=== PATIENT | male | born 1990 | race Two or more races ===

== ENCOUNTER 2020-04-15 10:54 | Inpatient (IN) | payer MEDICAID, OTHER ==
[~2020-04-15] VITALS: Ht 175.3 cm; Wt 90.7 kg
[2020-04-15 12:17] LABS: Basophils # (auto) 0 10 ^3/uL (0-0.2); Basophils % (auto) 0.3 % (0.0-2.0); Eosinophils # (auto) 0 10 ^3/uL (0-0.8); Hematocrit 45.6 % (41.0-53.0); Hemoglobin 16.2 g/dL (13.5-17.5); Mean Corpuscular Hemoglobin 30.7 pg (28.0-32.0); Mean Corpuscular Hgb Conc. 35.5 g/dL (32.0-36.0); Mean Corpuscular Volume 86.6 fL (80.0-100.0); Monocytes # (auto) 0.2 10 ^3/uL (0-1.3); Monocytes % (auto) 6.2 % (0.0-12.0); Neutrophils # (auto) 2.4 10 ^3/uL (1.6-8.6); Neutrophils % (auto) 65.5 % (37.0-80.0); Nucleated Red Blood Cells % 1.4 %; Platelet Count (auto) 127 10^3/uL (140-450); Red Blood Cells 5.26 10^6/uL (4.5-5.90); White Blood Cell 3.7 10^3/uL (4.4-10.8)
[2020-04-15] MEDS ORDERED: ASCORBIC ACID 500 MG TAB PO ONE (12:45)
[2020-04-15] MEDS ORDERED: DexAMETHasone 4 MG TAB PO ONE (12:45)
[2020-04-15] MEDS ORDERED: ZINC SULFATE 220mg CAP or TAB PO ONE (12:45)
[2020-04-15] MEDS ORDERED: AZITHROMYCIN 500MG/ 250ML 250 ML IV ONE (12:45)
[2020-04-15 13:34] LABS: Albumin 3.1 g/dL (3.4-5.0); Calcium 8.1 mg/dL (8.5-10.1); Potassium 3.9 mmol/L (3.5-5.1)
[2020-04-15 13:38] LABS: BUN/Creatinine Ratio 12.9; Bilirubin, Total 0.4 mg/dL (0.2-1.0); Total Protein 7.2 g/dL (6.4-8.2)
[2020-04-15] MEDS ORDERED: ACETAMINOPHEN 325 MG TAB PO ONE (14:45)
[2020-04-15] MEDS ORDERED: MORPHINE SULF INJ 2 MG/ML SYRINGE 1ML IV PRN ×2 (16:15→16:30)
[2020-04-15] MEDS ORDERED: REMDESIVIR PER PHARMACY 0 ML IV SCH (16:15)
[2020-04-15] MEDS ORDERED: NITROGLYCERIN 0.4 MG SL TAB SL PRN (16:15)
[2020-04-15] MEDS ORDERED: diphenhdrAMINE HCL 50 MG/1 ML VL IV PRN (16:15)
[2020-04-15] MEDS ORDERED: TEMAZEPAM 15 MG CAP PO PRN (16:30)
[2020-04-15] MEDS ORDERED: traMADol HCL 50 MG TAB PO PRN (16:30)
[2020-04-15] MEDS ORDERED: ACETAMINOPHEN 500 MG TAB PO PRN (16:30)
[2020-04-15] MEDS ORDERED: PROMETHAZINE HCL 25 MG/ML 1ML IV PRN (16:30)
[2020-04-15] MEDS: ACETAMINOPHEN 325 MG TAB PO ONE ×2 (17:02→17:03)
[2020-04-15] MEDS: BUDESONIDE (INHALATION) 180 MCG IH IN SCH (22:00)
[2020-04-15 23:19] LABS: INR 1.01 (0.9-1.15); Partial Thromboplastin Time 30.8 sec (23.0-31.2)
[2020-04-15] MEDS: ENOXAPARIN SOD 40 MG/0.4 ML SYRINGE SC SCH (23:25)
[2020-04-15] MEDS: FAMOTIDINE (10MG/ML) 2ML VL IV SCH (23:25)
[2020-04-16 06:03] LABS: Basophils # (auto) 0 10 ^3/uL (0-0.2); Basophils % (auto) 0.4 % (0.0-2.0); Eosinophils # (auto) 0 10 ^3/uL (0-0.8); Hematocrit 46.1 % (41.0-53.0); Hemoglobin 16.1 g/dL (13.5-17.5); Lymphocytes # (auto) 0.8 10 ^3/uL (0.4-5.4); Lymphocytes % (auto) 38.8 % (10.0-50.0); Mean Corpuscular Hemoglobin 30.2 pg (28.0-32.0); Mean Corpuscular Hgb Conc. 34.9 g/dL (32.0-36.0); Mean Corpuscular Volume 86.5 fL (80.0-100.0); Monocytes # (auto) 0.3 10 ^3/uL (0-1.3); Monocytes % (auto) 12.7 % (0.0-12.0); Neutrophils % (auto) 48.1 % (37.0-80.0); Nucleated Red Blood Cells % 1.1 %; Platelet Count (auto) 139 10^3/uL (140-450); Red Blood Cells 5.33 10^6/uL (4.5-5.90); Red Cell Distribution Width 13.1 % (11.8-14.3); White Blood Cell 2.2 10^3/uL (4.4-10.8)
[2020-04-16 06:23] LABS: Albumin 2.8 g/dL (3.4-5.0); Calcium 8.1 mg/dL (8.5-10.1); Potassium 3.9 mmol/L (3.5-5.1)
[2020-04-16 06:28] LABS: BUN/Creatinine Ratio 23.3; Bilirubin, Total 0.4 mg/dL (0.2-1.0); Total Protein 6.8 g/dL (6.4-8.2)
[2020-04-16] MEDS: ASCORBIC ACID 1,000 MG TAB PO SCH (08:49)
[2020-04-16] MEDS: levoFLOXacin 500MG 100 ML IV SCH (08:49)
[2020-04-16] MEDS: CHOLECALCIFEROL (VITD3) 2,000 UNIT CAP PO SCH (08:49)
[2020-04-16] MEDS: DexAMETHasone SOD PHOS 10MG/1ML VIAL INJ IV SCH (08:49)
[2020-04-16] MEDS: ZINC SULFATE 220mg CAP or TAB PO SCH (08:49)
[2020-04-16] MEDS: FAMOTIDINE (10MG/ML) 2ML VL IV SCH ×2 (08:49→22:39)
[2020-04-16] MEDS: ENOXAPARIN SOD 40 MG/0.4 ML SYRINGE SC SCH ×2 (08:50→22:40)
[2020-04-16] MEDS: BUDESONIDE (INHALATION) 180 MCG IH IN SCH ×2 (10:00→21:21)
[2020-04-16] MEDS ORDERED: REMDESIVIR 200 MG in NS 210ml LOADING DOSE ADULT IV ONE ×2 (17:00→20:00)
[2020-04-16] MEDS: ALBUTEROL SULF HFA 90MCG INH 200DOSE IN PRN (21:21)
[2020-04-17 08:22] LABS: Albumin 2.7 g/dL (3.4-5.0); BUN/Creatinine Ratio 23.2; Bilirubin, Total 0.3 mg/dL (0.2-1.0); Calcium 8.1 mg/dL (8.5-10.1); Total Protein 6.7 g/dL (6.4-8.2)
[2020-04-17] MEDS: BUDESONIDE (INHALATION) 180 MCG IH IN SCH ×2 (09:20→10:00)
[2020-04-17] MEDS: ALBUTEROL SULF HFA 90MCG INH 200DOSE IN PRN (09:21)
[2020-04-17] MEDS: FAMOTIDINE (10MG/ML) 2ML VL IV SCH ×2 (10:00→22:18)
[2020-04-17] MEDS: CHOLECALCIFEROL (VITD3) 2,000 UNIT CAP PO SCH (10:00)
[2020-04-17] MEDS: ENOXAPARIN SOD 40 MG/0.4 ML SYRINGE SC SCH ×2 (10:00→22:18)
[2020-04-17] MEDS: ZINC SULFATE 220mg CAP or TAB PO SCH (10:00)
[2020-04-17] MEDS: DexAMETHasone SOD PHOS 10MG/1ML VIAL INJ IV SCH (10:00)
[2020-04-17] MEDS: levoFLOXacin 500MG 100 ML IV SCH (10:00)
[2020-04-17] MEDS: ASCORBIC ACID 1,000 MG TAB PO SCH (10:00)
[2020-04-17] MEDS ORDERED: REMDESIVIR 100 MG in SODIUM CHL 0.9% 250 ML IV SCH (15:00)
[2020-04-17] MEDS: REMDESIVIR 100 MG in SODIUM CHL 0.9% 250 ML IV SCH (15:00)
--- NOTE | 2020-04-17 21:50 | NUR ---
PATIENT BROUGHT UP TO UNIT FROM THE EMERGENCY DEPARTMENT. HE IS AO X4 AND AMBULATORY. HE CURRENTLY IS ON 2L NC SATTING AT 91%. COMPLAINS OF MILD SHORTNESS OF BREATH AT REST WELL ON EXERTION. HE DENIES ANY PAIN AT THIS TIME. BED IS LOCKED IN LOWEST POSITION WITH SIDE RAILS UP X2. WILL CONTINUE TO MONITOR.
[2020-04-17 23:39] VITALS: BP 114/65
[2020-04-18 08:17] LABS: Albumin 2.5 g/dL (3.4-5.0); BUN/Creatinine Ratio 26.9; Bilirubin, Total 0.5 mg/dL (0.2-1.0); Calcium 7.6 mg/dL (8.5-10.1); Total Protein 6.1 g/dL (6.4-8.2)
[2020-04-18] MEDS: ENOXAPARIN SOD 40 MG/0.4 ML SYRINGE SC SCH ×2 (10:00→21:52)
[2020-04-18] MEDS: BUDESONIDE (INHALATION) 180 MCG IH IN SCH ×2 (10:00→21:52)
[2020-04-18] MEDS: FAMOTIDINE (10MG/ML) 2ML VL IV SCH ×2 (10:14→21:52)
[2020-04-18] MEDS: levoFLOXacin 500MG 100 ML IV SCH (10:14)
[2020-04-18] MEDS: ZINC SULFATE 220mg CAP or TAB PO SCH (10:15)
[2020-04-18] MEDS: ASCORBIC ACID 1,000 MG TAB PO SCH (10:15)
[2020-04-18] MEDS: FUROSEMIDE 40 MG/4 ML VIAL IV SCH (10:26)
[2020-04-18] MEDS: DexAMETHasone SOD PHOS 10MG/1ML VIAL INJ IV SCH (10:59)
[2020-04-18] MEDS: CHOLECALCIFEROL (VITD3) 2,000 UNIT CAP PO SCH (10:59)
[2020-04-18] MEDS: REMDESIVIR 100 MG in SODIUM CHL 0.9% 250 ML IV SCH (15:31)
--- NOTE | 2020-04-18 21:50 | NUR ---
PATIENT SATTING AT 96% ON 2L NC. HE ASKED TO TAKE OFF OXYGEN TO SEE HOW HE WILL DO. OXYGEN TAKEN OFF AND WILL CONTINUE TO MONITOR RESPIRATORY STATUS.
[2020-04-19] MEDS: ALBUTEROL SULF HFA 90MCG INH 200DOSE IN PRN ×3 (01:16→20:28)
[2020-04-19 07:05] LABS: Basophils # (auto) 0 10 ^3/uL (0-0.2); Basophils % (auto) 0.1 % (0.0-2.0); Eosinophils # (auto) 0 10 ^3/uL (0-0.8); Eosinophils % (auto) 0.1 % (0.0-7.0); Hematocrit 45.6 % (41.0-53.0); Hemoglobin 15.9 g/dL (13.5-17.5); Lymphocytes # (auto) 1.7 10 ^3/uL (0.4-5.4); Lymphocytes % (auto) 28.5 % (10.0-50.0); Mean Corpuscular Hemoglobin 30.3 pg (28.0-32.0); Mean Corpuscular Hgb Conc. 34.9 g/dL (32.0-36.0); Mean Corpuscular Volume 86.7 fL (80.0-100.0); Monocytes % (auto) 16.5 % (0.0-12.0); Neutrophils # (auto) 3.3 10 ^3/uL (1.6-8.6); Neutrophils % (auto) 54.8 % (37.0-80.0); Nucleated Red Blood Cells % 0.1 %; Platelet Count (auto) 241 10^3/uL (140-450); Red Blood Cells 5.26 10^6/uL (4.5-5.90); Red Cell Distribution Width 13.2 % (11.8-14.3)
[2020-04-19] MEDS: BUDESONIDE (INHALATION) 180 MCG IH IN SCH ×2 (07:17→19:30)
[2020-04-19 07:37] LABS: Potassium 4.1 mmol/L (3.5-5.1)
--- NOTE | 2020-04-19 07:50 | NUR ---
Opening Shift Note Assumed care of patient, awake and alert bed is locked and lowest position bed rails up x2 , call light is within reach . No S/S of distress/SOB or pain. Instructed on POC and to call for assistance PRN, will continue to monitor for changes Q1hr and PRN.
[2020-04-19 07:51] LABS: Albumin 2.7 g/dL (3.4-5.0); BUN/Creatinine Ratio 24.2; Bilirubin, Total 0.6 mg/dL (0.2-1.0); Calcium 8.3 mg/dL (8.5-10.1); Total Protein 6.3 g/dL (6.4-8.2)
[2020-04-19 09:00] VITALS: BP 115/57
[2020-04-19] MEDS: DexAMETHasone SOD PHOS 10MG/1ML VIAL INJ IV SCH (11:13)
[2020-04-19] MEDS: levoFLOXacin 500MG 100 ML IV SCH (11:14)
[2020-04-19] MEDS: FUROSEMIDE 40 MG/4 ML VIAL IV SCH (11:14)
[2020-04-19] MEDS: ZINC SULFATE 220mg CAP or TAB PO SCH (11:15)
[2020-04-19] MEDS: FAMOTIDINE (10MG/ML) 2ML VL IV SCH ×2 (11:15→21:53)
[2020-04-19] MEDS: ASCORBIC ACID 1,000 MG TAB PO SCH (11:15)
[2020-04-19] MEDS: CHOLECALCIFEROL (VITD3) 2,000 UNIT CAP PO SCH (11:15)
[2020-04-19] MEDS: ENOXAPARIN SOD 40 MG/0.4 ML SYRINGE SC SCH ×2 (11:16→21:53)
[2020-04-19 13:00] VITALS: BP 116/68
[2020-04-19] MEDS: REMDESIVIR 100 MG in SODIUM CHL 0.9% 250 ML IV SCH (15:29)
--- NOTE | 2020-04-19 15:34 | NUR ---
Nutrition Assessment Notes Please refer to link for full assessment notes. Est Energy needs: 7135-0081 kcals (20-23 kcal/kgBW) Est Protein needs: 58-73 gms/day (0.8-1.0 gm/kgIBW of 72.7kg) Will continue to monitor and reassess prn. Addendum: 04/19/20 at [address] Amended: Links added.
[2020-04-19 16:00] VITALS: BP 106/65
[2020-04-20] VITALS: BP 105/62
[2020-04-20 08:32] LABS: Potassium 3.7 mmol/L (3.5-5.1)
[2020-04-20 08:56] LABS: Albumin 2.8 g/dL (3.4-5.0); BUN/Creatinine Ratio 25.8; Bilirubin, Total 0.8 mg/dL (0.2-1.0); Calcium 8.1 mg/dL (8.5-10.1); Total Protein 6.7 g/dL (6.4-8.2)
[2020-04-20 09:29] VITALS: BP 115/57
[2020-04-20] MEDS: FUROSEMIDE 40 MG/4 ML VIAL IV SCH (10:00)
[2020-04-20] MEDS: BUDESONIDE (INHALATION) 180 MCG IH IN SCH (10:03)
[2020-04-20] MEDS: ALBUTEROL SULF HFA 90MCG INH 200DOSE IN PRN (10:03)
[2020-04-20] MEDS: FAMOTIDINE (10MG/ML) 2ML VL IV SCH (10:31)
[2020-04-20] MEDS: ZINC SULFATE 220mg CAP or TAB PO SCH (10:31)
[2020-04-20] MEDS: DexAMETHasone SOD PHOS 10MG/1ML VIAL INJ IV SCH (10:31)
[2020-04-20] MEDS: ASCORBIC ACID 1,000 MG TAB PO SCH (10:31)
[2020-04-20] MEDS: ENOXAPARIN SOD 40 MG/0.4 ML SYRINGE SC SCH (10:32)
[2020-04-20] MEDS: CHOLECALCIFEROL (VITD3) 2,000 UNIT CAP PO SCH (10:32)
[2020-04-20] MEDS: levoFLOXacin 500MG 100 ML IV SCH (10:38)
--- NOTE | 2020-04-20 12:17 | NUR ---
Discharge instructions given as ordered. Encourage to follow up with PMD as instructed. All questions and concerns addressed. Patient verbalized understanding. Medication reconciliation form completed and copy given to patient. IV removed with catheter intact, pressure dressing applied, schafer catheter removed. Telemetry unit returned to ICU. Patient taken to vehicle via wheelchair with all personal belongings, accompanied by staff and family member. No distress noted at time of departure.
== END 2020-04-20 12:30 | disposition home or self-care (01) | DRG 137 ==
LOC: ER 10:54 → TELE 16:02 → TELE-WESTW 04-17 21:50
PROVIDERS: ADMIT Internal Medicine; ATTEND Internal Medicine
PROC: XW033E5 Introduction of Remdesivir Anti-infective into Peripheral Vein, Percutaneous Approach, New Technology Group 5 (ICD-10-PCS; principal; 2020-04-15)
DX: U07.1 COVID-19 (principal); J12.89 Other viral pneumonia; J96.01 Acute respiratory failure with hypoxia; E87.1 Hypo-osmolality and hyponatremia; E66.3 Overweight; D69.6 Thrombocytopenia, unspecified; E44.0 Moderate protein-calorie malnutrition; F17.210 Nicotine dependence, cigarettes, uncomplicated; Z82.49 Family history of ischemic heart disease and other diseases of the circulatory system; Z68.29 Body mass index [BMI] 29.0-29.9, adult; R65.11 Systemic inflammatory response syndrome (SIRS) of non-infectious origin with acute organ dysfunction
CPT/HCPCS: 36415; 71045; 80053; 82728; 83605; 83735; 85025; 85610; 85730; 86850; 86900; 86901; 87040; 87426; 94640; 96365; 96366; G0378; J1100; J1956; J3490

== ENCOUNTER 2023-09-04 20:06 | Emergency (ER) | payer MEDICAID ==
[~2023-09-04] VITALS: Ht 167.6 cm; Wt 90.0 kg
[2023-09-04 20:45] VITALS: BP 132/82; PULSE 66; RESP 16; TEMP 98; O2SAT 98
[2023-09-04] MEDS: KETOROLAC TROMETH 30 MG/ML 1ML VIAL IM ONE (22:39)
== END 2023-09-04 23:31 | disposition home or self-care (01) ==
LOC: ER 20:06
DX: J32.9 Chronic sinusitis, unspecified (principal); F17.210 Nicotine dependence, cigarettes, uncomplicated
CPT/HCPCS: 70486; 96372; 99285; J1885